=== PATIENT | female | born 2000 | race Two or more races ===

== ENCOUNTER 2023-08-28 08:21 | Emergency (ER) | payer OTHER ==
[~2023-08-28] VITALS: Ht 170.2 cm; Wt 67.1 kg
[2023-08-28] MEDS ORDERED: FAMOtidine 10 MG/ML (4ML VIAL) IV STA (08:43)
[2023-08-28] MEDS ORDERED: ONDANSETRON HCL 2 MG/ML VIAL IV ONE (08:45)
[2023-08-28 09:13] LABS: HEMATOCRIT 38.4 % (36.0-45.00); HEMOGLOBIN 12.8 g/dL (12.0-15.00); MEAN CELL VOLUME 83.7 fL (80.00-100.00); MEAN CORPUSCULAR HEMOGLOBIN 27.9 pg (27.00-32.0); MEAN CORPUSCULAR HGB CONC 33.3 g/dl (32.0-36.0); PLATELET COUNT 311 K/uL (150-450); RED BLOOD COUNT 4.59 M/uL (4.00-6.00); RED CELL DISTRIBUTION WIDTH 14.3 % (11.5-14.5)
[2023-08-28 09:46] LABS: PH,URINE 6.5 (5.0-8.0); URINE BILIRRUBIN Negative (NEGATIVE); URINE BLOOD Negative; URINE GLUCOSE Negative (NEGATIVE); URINE LEUKOCYTE Small; URINE NITRATE Negative; URINE PROTEIN Negative (NEGATIVE); URINE UROBILINOGEN 0.2 E.U./dl
[2023-08-28 09:51] LABS: URINE BACTERIA 1666.9 uL (0.0-1933); URINE EPITHELIAL CELLS 67.2 uL (0.0-38.8); URINE RBC 12.3 uL (0.0-20.8); URINE WBC 45.6 uL (0.0-23.2)
[2023-08-28 12:40] LABS: URINE APPEARANCE CLEAR; URINE COLOR Yellow
== END 2023-08-28 13:33 | disposition home or self-care (01) ==
LOC: ER 08:22
PROVIDERS: General Practice
DX: O21.0 Mild hyperemesis gravidarum (principal); O43.891 Other placental disorders, first trimester; Z3A.10 10 weeks gestation of pregnancy

== ENCOUNTER 2024-03-24 05:37 | Inpatient (IN) | payer OTHER ==
[~2024-03-24] VITALS: Ht 170.2 cm; Wt 81.6 kg
[2024-03-24] VITALS (7 sets, daily range): BP systolic 97–136; BP diastolic 57–77
[2024-03-24] MEDS ORDERED: AMPICILLIN SODIUM 2,000 MG VIAL ONE (05:44)
[2024-03-24] MEDS ORDERED: PRENATAL TABLE1 EAC4 PO (06:32)
[2024-03-24] MEDS ORDERED: AMPICILLIN SODIUM 2,000 MG VIAL IV ONE (06:45)
[2024-03-24] MEDS ORDERED: RINGERS SOLUTION,LACTATED 1,000 ML IV SCH (06:45)
[2024-03-24 06:59] LABS: HEMATOCRIT 37.4 % (36.0-45.00); HEMOGLOBIN 12.4 g/dL (12.0-15.00); MEAN CELL VOLUME 84.7 fL (80.00-100.00); PLATELET COUNT 233 K/uL (150-450); RED BLOOD COUNT 4.41 M/uL (4.00-6.00)
[2024-03-24 07:12] LABS: PH,URINE 6.5 (5.0-8.0); URINE APPEARANCE Clear; URINE BILIRRUBIN Negative (NEGATIVE); URINE BLOOD Negative; URINE COLOR Yellow; URINE GLUCOSE Negative (NEGATIVE); URINE KETONE Negative (NEGATIVE); URINE LEUKOCYTE Large; URINE NITRATE Negative; URINE PROTEIN Negative (NEGATIVE); URINE UROBILINOGEN 0.2 E.U./dl
[2024-03-24 07:15] LABS: URINE BACTERIA 1532.4 uL (0.0-1933); URINE EPITHELIAL CELLS 29.6 uL (0.0-38.8); URINE WBC 49.5 uL (0.0-23.2)
[2024-03-24 07:22] LABS: INR < 0.93; PARTIAL THROMBOPLASTIN TIME 27.2 SECONDS (22.0-34.0)
[2024-03-24 07:57] LABS: ALBUMIN 2.7 gm/dL (3.4-5.0); BILIRUBIN TOTAL 0.28 mg/dL (0.3-1.2); CALCIUM 9.4 mg/dL (8.5-10.1); CREATININE SERUM 0.5 mg/dL (0.55-1.02); GFR 150.33; GLOBULINA 3.5 G/DL (2.4-3.5); POTASSIUM 4.21 mEq/L (3.5-5.1); TOTAL PROTEIN 6.2 gm/dL (6.4-8.2)
[2024-03-24] MEDS ORDERED: MISOPROSTOL 25 MCG/4 ML GEL.W.APPL ONE (08:12)
[2024-03-24] MEDS ORDERED: MISOPROSTOL 25 MCG/4 ML GEL.W.APPL VAG NR (08:30)
[2024-03-24] MEDS ORDERED: AMPICILLIN SODIUM 1,000 MG VIAL IV SCH (09:00)
[2024-03-24] MEDS ORDERED: OXYTOCIN 500 ML IV SCH (13:00)
[2024-03-24] MEDS ORDERED: PROMETHAZINE HCL 25 MG/ML AMPUL IV ONE (14:00)
[2024-03-24] MEDS ORDERED: MEPERIDINE HCL/PF 50 MG/ML VIAL IV ONE (14:00)
[2024-03-24] MEDS ORDERED: PROMETHAZINE HCL 25 MG/ML AMPUL ONE (14:29)
[2024-03-24] MEDS ORDERED: OXYTOCIN 20 UNITS/1000ML RL PIGGYBAG IV ONE (17:42)
[2024-03-24] MEDS ORDERED: ERYTHROMYCIN BASE OPHT 1GM EACH TUBE OP ONE (17:42)
[2024-03-24] MEDS ORDERED: LIDOCAINE HCL 1% 10ML VIAL ONE (17:43)
[2024-03-24] MEDS ORDERED: CHLORHEXIDINE GLUCONATE 120 ML BOTTLE TOP ONE (17:43)
[2024-03-25] MEDS ORDERED: IBUprofen 600 MG TABLET PO SCH
[2024-03-25 02:20] VITALS: BP 113/73
[2024-03-25 08:14] VITALS: BP 101/58
[2024-03-25] MEDS ORDERED: BENZOCAINE/MENTHOL 90 ML BOTTLE TOP SCH (13:00)
[2024-03-25 15:21] VITALS: BP 125/86
[2024-03-26 01:44] VITALS: BP 127/80
[2024-03-26 08:00] VITALS: BP 114/77
== END 2024-03-26 14:53 | disposition home or self-care (01) | DRG 807 ==
LOC: LDR 05:37 → OB/GYN 18:56 → LDR 19:02 → OB/GYN 03-25 00:35
PROVIDERS: ADMIT Specialist; ATTEND Specialist
PROC: 10E0XZZ Delivery of Products of Conception, External Approach (ICD-10-PCS; principal; 2024-03-24)
PROC: 0HQ9XZZ Repair Perineum Skin, External Approach (ICD-10-PCS; 2024-03-24)
PROC: 4A1HXCZ Monitoring of Products of Conception, Cardiac Rate, External Approach (ICD-10-PCS; 2024-03-24)
DX: O70.0 First degree perineal laceration during delivery (principal); Z37.0 Single live birth; O99.824 Streptococcus B carrier state complicating childbirth; Z3A.39 39 weeks gestation of pregnancy